=== PATIENT | female | born 1940 | race Caucasian/White ===

== ENCOUNTER 2020-03-12 15:03 | Inpatient (IN) | payer OTHER ==
[~2020-03-12] VITALS: Ht 162.6 cm; Wt 54.4 kg
[~2020-03-12 15:03] MED LIST: AMBIEN10 MG PO; Colace 100MG PO; NEURONTIN PO; PERCOCET 5/321 UDTAB PO
[2020-03-12] MEDS ORDERED: CANDESARTAN CILE8 MG (15:40)
[2020-03-12] MEDS ORDERED: EVISTA60 MG (15:41)
[2020-03-12] MEDS ORDERED: PRAVASTATIN SOD20 MG (15:41)
[2020-03-12] MEDS ORDERED: NEURONTIN300 MG (15:41)
[2020-03-12] MEDS ORDERED: LEVOTHYROXINE25 MCG (15:42)
[2020-03-12] MEDS ORDERED: PENTOXIFYLLINE400 MG (15:42)
[2020-03-12] MEDS ORDERED: DICLOFENAC SODI50 MG (15:43)
[2020-03-12] MEDS ORDERED: HUMALOG MI100 UNIT/1 (15:43)
[2020-03-12] MEDS ORDERED: LANTUS SOL100 UNIT/1 (15:43)
[2020-03-12] MEDS ORDERED: MEGESTROL ACETA40 MG (15:44)
[2020-03-12] MEDS ORDERED: TRAMADOL HCL E100 M1 (15:44)
[2020-03-12] MEDS ORDERED: PEPCID AC20 MG (15:44)
[2020-03-12] MEDS ORDERED: L-THREONINE500 MG (15:45)
[2020-03-12] MEDS ORDERED: B12 ACTIVE1000 MCG (15:45)
[2020-03-12] MEDS ORDERED: ASPIR 8181 MG (15:45)
== END 2020-03-16 17:28 | disposition home or self-care (01) | DRG 812 ==
LOC: ER 15:03 → SURG 19:24 → SEC-K 19:24 → SURG 20:36 → MEDI 03-16 14:30 → SURG 03-16 14:39
PROVIDERS: ADMIT Internal Medicine; ATTEND Internal Medicine
PROC: 30233N1 Transfusion of Nonautologous Red Blood Cells into Peripheral Vein, Percutaneous Approach (ICD-10-PCS; principal; 2020-03-13)
DX: D62 Acute posthemorrhagic anemia (principal); N39.0 Urinary tract infection, site not specified; E44.0 Moderate protein-calorie malnutrition; Z68.1 Body mass index [BMI] 19.9 or less, adult; C67.9 Malignant neoplasm of bladder, unspecified; R31.0 Gross hematuria; I12.9 Hypertensive chronic kidney disease with stage 1 through stage 4 chronic kidney disease, or unspecified chronic kidney disease; N18.3 Chronic kidney disease, stage 3 (moderate); Z74.01 Bed confinement status; Z20.828 Contact with and (suspected) exposure to other viral communicable diseases; D63.0 Anemia in neoplastic disease